=== PATIENT | female | born 1990 | race Caucasian/White ===

== ENCOUNTER 2021-06-04 13:14 | Outpatient (CLI) | payer SELFPAY ==
--- NOTE | 2021-06-04 13:18 | US_ITS ---
STUDY: ULTRASOUND OF THE FEMALE PELVIS - COMPLETE REASON FOR EXAM: Female, 30 years old. Pelvic pain. Endometriosis. LMP: 05/23/2021. TECHNIQUE: Transabdominal and Transvaginal TECHNICAL QUALITY: Adequate. COMPARISON: None. FINDINGS: The uterus is retroverted and is in a midline position. The uterus measures 8.8 cm x 6 cm x 4.9 cm. Normal uterine cervix. The endometrium measures 6.6 mm in thickness, and is heterogeneous (striated). There is no demonstrated endometrial mass. There is a 2 cm x 2.5 cm x 2.7 cm fibroid in the fundal aspect of the uterus. I.U.D. - The patient does not have an I.U.D. The right ovary is visualized. The right ovary measures 3.4 cm x 3.4 cm x 2.5 cm. There is no right ovarian cyst or ovarian mass. There is no visualized right adnexal mass or complex lesion. There is normal arterial and normal venous vascularity. The left ovary is visualized. The left ovary measures 2.8 cm x 2.7 cm x 1.3 cm. There is no left ovarian cyst or ovarian mass. There is no visualized left adnexal mass or complex lesion. There is normal arterial and normal venous vascularity. There is no fluid in the cul-de-sac. The pre void volume of the bladder was 398.61 ml. US/Transvaginal Non- IMPRESSION: 2 cm x 2.5 cm x 2.7 cm fibroid in the fundal aspect of the uterus. Electronically Signed: Miguel Mckee MD at 14:55 EST ,
--- NOTE | 2021-06-04 13:18 | US_ITS ---
STUDY: ULTRASOUND OF THE FEMALE PELVIS - COMPLETE REASON FOR EXAM: Female, 30 years old. Pelvic pain. Endometriosis. LMP: 05/23/2021. TECHNIQUE: Transabdominal and Transvaginal TECHNICAL QUALITY: Adequate. COMPARISON: None. FINDINGS: The uterus is retroverted and is in a midline position. The uterus measures 8.8 cm x 6 cm x 4.9 cm. Normal uterine cervix. The endometrium measures 6.6 mm in thickness, and is heterogeneous (striated). There is no demonstrated endometrial mass. There is a 2 cm x 2.5 cm x 2.7 cm fibroid in the fundal aspect of the uterus. I.U.D. - The patient does not have an I.U.D. The right ovary is visualized. The right ovary measures 3.4 cm x 3.4 cm x 2.5 cm. There is no right ovarian cyst or ovarian mass. There is no visualized right adnexal mass or complex lesion. There is normal arterial and normal venous vascularity. The left ovary is visualized. The left ovary measures 2.8 cm x 2.7 cm x 1.3 cm. There is no left ovarian cyst or ovarian mass. There is no visualized left adnexal mass or complex lesion. There is normal arterial and normal venous vascularity. There is no fluid in the cul-de-sac. The pre void volume of the bladder was 398.61 ml. US/Pelvic (Non ) IMPRESSION: 2 cm x 2.5 cm x 2.7 cm fibroid in the fundal aspect of the uterus. Electronically Signed: Miguel Mckee MD at 14:55 EST ,
== END 2021-06-04 23:59 | disposition home or self-care (01) ==
PROVIDERS: PCP Physician Assistant; Referring Provider Obstetrics & Gynecology; Visit Provider Obstetrics & Gynecology
DX: R10.2 Pelvic and perineal pain (principal)
CPT/HCPCS: 76830; 76856

== ENCOUNTER → 2023-12-26 | Outpatient (CLI) | payer SELFPAY ==
--- NOTE | 2023-12-26 08:53 | US_ITS ---
INDICATION: LUQ SPLEEN SIZE -- ATTN SPLEEN COMPARISON: Abdominal CT 05/05/2023. FINDINGS: 51 grayscale ultrasound images of the left upper quadrant. SPLEEN: Borderline splenomegaly measuring just over 13 cm. KIDNEY: Left kidney is without shadowing nephrolith or hydronephrosis. No significant free fluid. US/Abdomen Limited IMPRESSION: Borderline splenomegaly. Electronically Signed: Ammon Hammond MD at 7:18 EDT ,
[2023-12-26 09:36] LABS: Absolute Lymphocyte Count 1.33 X10^3/uL (0.83-4.51); Absolute Neutrophil Count 2.6 X10^3/uL (2.0-7.7); Basophil# 0.04 X10^3/uL; Basophil% 0.9 % (0-1); Eosinophil# 0.21 X10^3/uL; Eosinophils% 4.7 % (0-5); Hematocrit 28.9 % (37-47); Lymphocyte # 1.33 X10^3/ul (0.83-4.51); Lymphocyte % 29.5 % (19-41); Mean Corp Hgb Conc 31.1 g/dL (32-36); Mean Corpuscular Hgb 26.9 pg (27.0-32.0); Mean Corpuscular Volume 86.3 fL (81-99); Mean Platelet Vol. 10.9 fl (6.2-12.0); Monocyte# 0.32 X10^3/uL; Monocyte% 7.1 % (0-10); NRBC Flagged by Analyzer 0 % (0-5); Neutrophil # 2.59 X10^3/uL (2.7-7.7); Neutrophil % 57.4 % (47-70); Platelet Count 196 K/mm3 (150-450); RBC Distribution Width CV 14.4 % (11.6-14.6); RBC Distribution Width SD 45.2 fl (35.1-43.9); Red Blood Count 3.35 M/mm3 (4.2-5.4); White Blood Count 4.5 K/mm3 (4.4-11.0)
[2023-12-26 10:09] LABS: Ferritin 7 ng/mL (8-252); Iron 16 ug/dL (50-170); Iron Binding Capacity,Total 347 ug/dL (250-450); PERCENT IRON SATURATION 4.6 % (15.0-55.0); Vitamin B12 1007 pg/mL (211-911)
== END | disposition home or self-care (01) ==
PROVIDERS: PCP Physician Assistant; Referring Provider Internal Medicine Hematology & Oncology; Visit Provider Internal Medicine Hematology & Oncology
DX: R16.1 Splenomegaly, not elsewhere classified (principal); D64.9 Anemia, unspecified
CPT/HCPCS: 36415; 76705; 82607; 82728; 83540; 83550; 85025